=== PATIENT | male | born 1975 ===

== ENCOUNTER 2022-11-22 06:07 | Day surgery (SDC) | payer OTHER ==
[~2022-11-22] VITALS: Ht 185.4 cm; Wt 122.5 kg
[2022-11-22] MEDS ORDERED: NEURONTIN300 MG PO (10:19)
[2022-11-22] MEDS ORDERED: PERCOCET 5-3251 EACH PO (10:19)
[2022-11-22] MEDS ORDERED: DERMOPLAST PAIN78 GM TOP (10:20)
[2022-11-22] MEDS ORDERED: KETO10TA2 PO (10:20)
== END 2022-11-22 14:15 | disposition home or self-care (01) ==
LOC: CIR.AMB 06:07
PROVIDERS: ATTEND Surgery
DX: K60.3 Anal fistula (principal); K62.5 Hemorrhage of anus and rectum; Z20.822 Contact with and (suspected) exposure to COVID-19